=== PATIENT | male | born 1975 | race Caucasian/White ===

== ENCOUNTER 2019-09-11 16:25 | Inpatient (IN) | payer OTHER ==
[~2019-09-11] VITALS: Ht 175.3 cm; Wt 90.7 kg
[2019-09-11 16:31] VITALS: BP 144/80
--- NOTE | 2019-09-11 16:36 | NUR ---
WAIT AT LOBBY
--- NOTE | 2019-09-11 17:19 | NUR ---
PT AMBULATED TO ER BED 01
[2019-09-11] MEDS ORDERED: NACL 0.9% 1,000 ML IV SCH (17:26)
[2019-09-11] MEDS ORDERED: NACL 0.9% 1,000 ML IV ONE (17:26)
[2019-09-11] MEDS ORDERED: PROMETHAZINE 25 MG/ML VIAL IM ONE (17:30)
[2019-09-11] MEDS ORDERED: KETOROLAC 30 MG/ML VIAL IVP ONE (17:30)
[2019-09-11] MEDS ORDERED: ONDANSETRON 4 MG/2 ML VIAL IVP ONE (17:30)
[2019-09-11] MEDS ORDERED: MORPHINE SULFATE 4 MG/ML SYR IVP ONE (17:30)
[2019-09-11] MEDS ORDERED: FAMOTIDINE 20 MG/2 ML VIAL IVP ONE (17:30)
--- NOTE | 2019-09-11 17:57 | NUR ---
PT WAS MEDICATED PER MD ORDER.
[2019-09-11 17:58] LABS: BASOPHILS % (AUTO) 0.4 % (0.0-2.0); EOSINOPHILS % (AUTO) 0.4 % (0.0-4.0); HEMATOCRIT 49.1 % (36-52); HEMOGLOBIN 16.6 g/dL (12.0-18.0); LYMPHOCYTES # (AUTO) 1.2 K/uL (2.0-11.5); LYMPHOCYTES % (AUTO) 20.7 % (20.5-51.1); MEAN CORPUSCULAR HEMOGLOBIN 31 pg (27-31); MEAN CORPUSCULAR HGB CONC 34 g/dL (33-37); MEAN CORPUSCULAR VOLUME 91.2 fL (80-94); MONOCYTES # (AUTO) 0.6 K/uL (0.8-1.0); MONOCYTES % (AUTO) 9.3 % (1.7-9.3); NEUTROPHILS # (AUTO) 4.2 K/uL (1.8-7.7); NEUTROPHILS % (AUTO) 69.2 % (42.2-75.2); PLATELET COUNT (AUTO) 189 K/uL (140-450); RED BLOOD CELL COUNT(AUTO) 5.39 MIL/uL (4.20-6.10); RED CELL DISTRIBUTION WIDTH 13.4 % (11.6-13.7)
[2019-09-11 18:15] LABS: APPEARANCE,URINE CLEAR (CLEAR); BILIRUBIN,URINE NEGATIVE (NEGATIVE); BLOOD, URINE NEGATIVE (NEGATIVE); COLOR,URINE YELLOW (YELLOW); LEUKOCYTE ESTERASE ,URINE NEGATIVE (NEGATIVE); NITRITE, URINE NEGATIVE (NEGATIVE); PH,URINE 7.5 (5.0-9.0); UGLUCOSE 3+ (NEGATIVE)
[2019-09-11 18:24] LABS: PROTHROMBIN TIME 10.3 secs (10.8-13.4)
[2019-09-11 18:25] LABS: BARBITURATE, URINE NEG. ng/ml (NEG <=200); BENZODIAZEPINE, URINE NEG. ng/mL (NEG <=200); CANNABINOID, URINE NEG. ng/mL (NEG <=50); COCAINE, URINE NEG. ng/mL (NEG <=300); OPIATE, URINE NEG. ng/mL (NEG <=2000); PHENCYCLIDINE SCREEN,URINE NEG. ng/mL (NEG <=25)
[2019-09-11 18:28] LABS: CARBON DIOXIDE 27.5 mmol/L (21-32); CHLORIDE 101 mmol/L (98-107); CREATININE 0.8 mg/dL (0.7-1.3); GFR ARICAN-AMERICAN 134 mL/min (>90); GLUCOSE 197 mg/dL (74-106); POTASSIUM 4.5 mmol/L (3.5-5.1); SODIUM SERUM 135 mmol/L (136-145); UREA NITROGEN, BLOOD 7 mg/dL (7-18)
[2019-09-11 18:37] LABS: ALBUMIN 4.3 g/dL (3.4-5.0); AMYLASE 56 U/L (25-115); ASPARTATE AMINOTRANSFERASE 34 U/L (15-37); GAMMA GLUTAMYL TRANSFERASE 29 U/L (7-51); LIPASE 218 U/L (73-393); TOTAL BILIRUBIN 0.6 mg/dL (0.0-1.0)
--- NOTE | 2019-09-11 19:46 | NUR ---
PATIENT ALERT AND ORIENTED, BREATHING EVEN AND UNLABORED, WILL CONTINUE TO MONITOR.
--- NOTE | 2019-09-11 20:04 | NUR ---
Dr. Avalos examining patient.
[2019-09-11] MEDS ORDERED: ONDANSETRON 4 MG/2 ML VIAL IVP PRN (21:25)
[2019-09-11] MEDS ORDERED: ACETAMINOPHEN 325 MG TAB PO PRN (21:25)
[2019-09-11 21:55] VITALS: BP 107/67
--- NOTE | 2019-09-11 21:55 | NUR ---
RECEIVED PT FROM ED VIA [facility]; PT AA O X 4, AMBULATORY STEADY IN HIS GAIT. PT WALKED TO BATHROOM. WITH IVF ON THE LEFT AC G 20, PATENT AND INTACT. PER PREVIOUS SHIFT PT IS BRADYCARDIA LAST READING AT THE ED 58 BPM' PT ALSO HAD ABD PAIN AT THE ED, BUT AT THIS NELL, PT NOT COMPLAINING OF PAIN. CALL LIGHT W/IN REACH, PLACED ON LOW BED. WILL CONTINUE TO MONITOR
--- NOTE | 2019-09-11 22:00 | NUR ---
Patient will be admitted to care of DR LEVINE. Admited to TELE. Will go to room 111B. Belongings list completed. Report to LISET KAHN.
[2019-09-12] VITALS (7 sets, daily range): BP systolic 99–139; BP diastolic 67–90
--- NOTE | 2019-09-12 00:04 | NUR ---
PT AGAIN WENT TO BATHROOM STEADY GAIT, PT TRYING TO GET SOME SLEEP AFTERWARDS
[2019-09-12] MEDS ORDERED: DEXTROSE 50% 50 ML SYR IVP PRN (00:05)
[2019-09-12] MEDS ORDERED: INSULIN LISPRO SLIDING SCALE 100 UNITS/ML VIAL SUBQ PRN (00:05)
--- NOTE | 2019-09-12 01:59 | NUR ---
CALLED PHARMACIST TO VERIFY ON MEDS, HAS NOT VERIFIED THEM SINCE ADMISSION AT THE UNIT
--- NOTE | 2019-09-12 02:54 | NUR ---
PT SLEEPING, NOT IN DISTRESS; ASKED HIM EARLIER TO CALL ME FOR OTHOSTATIC VITALS ONCE HE GETS UP ON BED.
--- NOTE | 2019-09-12 03:00 | NUR ---
TALKED TO JUANITA OF [facility], TOLD HER I TALKED TO WILBUR EARLIER AND SHE SAID THAT SHE WILL VERIFY. SHE DID NOT SAY ANY REASON THAT THE MEDS UNVERIFIED. JUANITA SAID THE REASON IS THAT NO ALLERGY WAS ENCODED. THE PHARMACY DID NOT EVEN CALL. I CALLED THEM 2X. 2ND TIME NOW
[2019-09-12] MEDS: NACL 0.9% 1,000 ML IV SCH ×2 (03:32→11:40)
--- NOTE | 2019-09-12 04:00 | NUR ---
TOOK THE ORTHOSTATIC VITALS; STANDIN/79; 74; SITTIN/86; 56; SUPINE: 107/67; 50; 97%; 0/10 PAIN 98.0 TEMP
--- NOTE | 2019-09-12 06:39 | NUR ---
PT IN STABLE CONDITION, WILL ENDORSE TO NEXT SHIFT
--- NOTE | 2019-09-12 07:15 | NUR ---
RECEIVED REPORT FROM ENDODONTIST NURSE AT BEDSIDE FOR CONTINUITY OF CARE. PATIENT AWAKE AND ALERT, RESPIRATIONS EVEN AND UNLABORED ON ROOM AIR. PATIENT DENIES PAIN. NO S/S OF DISTRESS NOTED. UPDATED BOARD. IV SITE INTACT, INFUSING IVF WELL. UPDATED PATIENT WITH PLAN OF CARE. HE VERBALIZED UNDERSTANDING. CALL LIGHT WITHIN REACH, WILL CONTINUE TO MONITOR PATIENT.
[2019-09-12] MEDS: BLOOD GLUCOSE MONITORING 1 DEV DEV FS SCH ×4 (07:38→21:13)
[2019-09-12] MEDS: metFORMIN 500 MG TAB PO SCH ×2 (08:00→17:00)
[2019-09-12] MEDS: DOCUSATE SODIUM 100 MG GELCAP PO SCH ×2 (08:25→21:12)
[2019-09-12] MEDS: PANTOPRAZOLE 40 MG INJ VIAL IVP SCH ×2 (08:27→21:12)
--- NOTE | 2019-09-12 08:27 | NUR ---
ORDERED MEDICATIONS GIVEN. PATIENT TOLERATED THEM WELL. NO COMPLAINTS AT THIS TIME. CALL LIGHT WITHIN REACH, WILL CONTINUE TO MONITOR PATIENT.
--- NOTE | 2019-09-12 08:37 | NUR ---
DC PLANN[age] YRS OLD MALE PATIENT WAS ADMITTED FROM HOME WITH A DX BRADYCARDIA. HR WAS IN 50 EKG SHOWED SINUS BLADIMIR 51 . PT WAS TREADTED IVF FOR HYDRATION WITH NS MORPHINE IV AND ZOFRAN IV . REPEAT EKG CARDIAC CONSULT ORDERED. DC PLAN TO GO HOME WHEN STABLE .CM TO FOLLOW
[2019-09-12 08:40] LABS: CHOL/HDL RATIO 4.7 (1-4.5); MAGNESIUM 1.9 mg/dL (1.8-2.4); PHOSPHORUS 2.7 mg/dL (2.5-4.9)
[2019-09-12 08:42] LABS: ANION GAP 10.7 (8-16); CARBON DIOXIDE 27.6 mmol/L (21-32); CREATININE 0.9 mg/dL (0.7-1.3); POTASSIUM 4.3 mmol/L (3.5-5.1)
--- NOTE | 2019-09-12 09:05 | NUR ---
PATIENT HAS BEEN SCREENED AND CATEGORIZED MODERATE NUTRITION RISK. PATIENT WILL BE SEEN WITHIN 3-5 DAYS OF ADMISSION. 09/14/18 09/16/[address]
[2019-09-12 09:44] LABS: BASOPHILS % (AUTO) 0.4 % (0.0-2.0); EOSINOPHILS # (AUTO) 0.1 K/uL (0-0.4); EOSINOPHILS % (AUTO) 1.2 % (0.0-4.0); HEMATOCRIT 48.2 % (36-52); HEMOGLOBIN 16.1 g/dL (12.0-18.0); LYMPHOCYTES # (AUTO) 1.9 K/uL (2.0-11.5); LYMPHOCYTES % (AUTO) 26.1 % (20.5-51.1); MEAN CORPUSCULAR HEMOGLOBIN 31 pg (27-31); MEAN CORPUSCULAR HGB CONC 33 g/dL (33-37); MEAN CORPUSCULAR VOLUME 92.9 fL (80-94); MONOCYTES # (AUTO) 0.8 K/uL (0.8-1.0); MONOCYTES % (AUTO) 10.7 % (1.7-9.3); NEUTROPHILS # (AUTO) 4.5 K/uL (1.8-7.7); NEUTROPHILS % (AUTO) 61.6 % (42.2-75.2); PLATELET COUNT (AUTO) 176 K/uL (140-450); RED BLOOD CELL COUNT(AUTO) 5.18 MIL/uL (4.20-6.10); RED CELL DISTRIBUTION WIDTH 13.4 % (11.6-13.7); WHITE BLOOD COUNT (AUTO) 7.3 K/uL (4.8-10.8)
--- NOTE | 2019-09-12 11:32 | NUR ---
Court Administrator Note: Basic Screen: Yes High Risk DC Screen [place]: ROSIE Eller Relationship: Pre-Admission Living Arrangements: Lives with Other Prior ADL Independent Current Home Health Name/Tel: N/A Current DME/02 Name/Tel: N/A Current Hospice Name/Tel: N/A Current Dialysis Name/Tel: N/A Healthcare Decision Maker: Patient Advance Directive No - REFUSED Physician Orders for Life Sustaining Treatment Form No Information Taught: Advance Directive Person Taught: Patient Teaching Tools: Verbal Factors Affecting Learning: None Participation Level: Refused Evaluation: Verbalizes Understanding Needs Additional Education: No Discipline: Case Mgt/Social Svcs Tentative Discharge Plan/Destination: No Needs Identified Will require assistance post discharge: No Referred to Hand Washer: No Tentative Discharge Plan Summary: Patient is a 43-year-old male admitted for bradycardia. Patient has PMHX of pre-DM. Patient was admitted from home. SW met with patient at bedside to verify demographics. Patient reported history of anxiety, but patient stated that he does not take medication for it. Patient reports no history of substance abuse. Pateint's tentative discharge plan is to return home. No further needs identified. Signature: TERRY Sorto Date: Sep 12, 2019 Time: 11:31
--- NOTE | 2019-09-12 12:03 | NUR ---
BS 1103, NO COVERAGE NEEDED. NO COMPLAINTS AT THIS TIME. CALL LIGHT WITHIN REACH, WILL CONTINUE TO MONITOR PATIENT.
--- NOTE | 2019-09-12 17:05 | NUR ---
PATIENT REFUSED ORDERED METFORMIN, PATIENT IS AWARE OF INDICATIONS. BS 110, NO COVERAGE NEEDED. NO COMPLAINTS AT THIS TIME. CALL LIGHT WITHIN REACH, WILL CONTINUE TO MONITOR PATIENT.
--- NOTE | 2019-09-12 19:18 | NUR ---
REPORT GIVEN TO TACK DRILLER NURSE AT BEDSIDE FOR CONTINUITY OF CARE. PATIENT IN STABLE CONDITION, FAMILY AT BEDSIDE.
--- NOTE | 2019-09-12 19:20 | NUR ---
RECEIVED FROM AM RN IN BED IN A SITTING UP POSITION READING A MAGAZINE. NO COMPLAINTS DONE. NO SOB. TELEMETRY MONITORING. CALL LIGHT WITH IN REACH. ENCOURAGED TO CALL FOR ANY HELP HE MAY NEED. ABLE TO VERBALIZE NEEDS WELL IN [place]. ALERT AND ORIENTED X 4. ROM X 4.
[2019-09-12 20:51] LABS: FREE T4 (FREE THYROXINE) 0.88 ng/dL (0.76-1.46); PHOSPHORUS 2.3 mg/dL (2.5-4.9); THYROID STIMULATING HORMONE 0.93 uIU/mL (0.34-3.74)
--- NOTE | 2019-09-12 22:28 | NUR ---
STILL AWAKE AT THIS TIME. HEALTH TEACHING GIVEN RE: DIABETES AND BRADYCARDIA. ENCOURAGED TO SLEEP TO REST FOR THE NIGHT. "OK" NO COMPLAINTS DONE.
--- NOTE | 2019-09-13 | NUR ---
SLEEPING. WOKE UP EASILY WHEN VITALS TAKEN. WENT BACK TO SLEEP AFTER. NO PAIN COMPLAINTS DONE AT THIS TIME. NO RESTLESSNESS. TELEMETRY MONITORING.
[2019-09-13 00:02] VITALS: BP_SYST 120; BP_SYST 127; BP_DIAS 70; BP_DIAS 73
[2019-09-13 04:00] VITALS: BP_SYST 106; BP_SYST 117; BP_SYST 121; BP_DIAS 73; BP_DIAS 74; BP_DIAS 78
[2019-09-13] MEDS: BLOOD GLUCOSE MONITORING 1 DEV DEV FS SCH (05:12)
[2019-09-13] MEDS: NACL 0.9% 1,000 ML IV SCH (05:19)
--- NOTE | 2019-09-13 05:55 | NUR ---
BEEN SLEEPING WELL THIS SHIFT. NO COMPLAINTS OF ANY PAIN DONE. TELEMETRY MONITORING. TELEMETRY MONITORING. CALL LIGHT WITH IN REACH. ABLE TO VERBALIZE NEEDS WELL. VITAL SIGNS TAKEN AND WAKES UP EASILY WHEN CALLED BY NAME. WILL ENDORSE TO AM RN FOR CONTINUITY OF CARE. 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
[2019-09-13 07:13] LABS: ANION GAP 14.8 (8-16); CARBON DIOXIDE 28.6 mmol/L (21-32); CREATININE 0.9 mg/dL (0.7-1.3); POTASSIUM 3.4 mmol/L (3.5-5.1)
[2019-09-13 07:17] LABS: BASOPHILS % (AUTO) 0.4 % (0.0-2.0); EOSINOPHILS # (AUTO) 0.1 K/uL (0-0.4); EOSINOPHILS % (AUTO) 2.6 % (0.0-4.0); HEMATOCRIT 50.9 % (36-52); HEMOGLOBIN 17.1 g/dL (12.0-18.0); LYMPHOCYTES # (AUTO) 2.1 K/uL (2.0-11.5); LYMPHOCYTES % (AUTO) 36.8 % (20.5-51.1); MEAN CORPUSCULAR HEMOGLOBIN 31 pg (27-31); MEAN CORPUSCULAR HGB CONC 34 g/dL (33-37); MEAN CORPUSCULAR VOLUME 92.8 fL (80-94); MONOCYTES # (AUTO) 0.6 K/uL (0.8-1.0); NEUTROPHILS # (AUTO) 2.8 K/uL (1.8-7.7); NEUTROPHILS % (AUTO) 50.2 % (42.2-75.2); PLATELET COUNT (AUTO) 186 K/uL (140-450); RED BLOOD CELL COUNT(AUTO) 5.48 MIL/uL (4.20-6.10); RED CELL DISTRIBUTION WIDTH 13.4 % (11.6-13.7); WHITE BLOOD COUNT (AUTO) 5.6 K/uL (4.8-10.8)
[2019-09-13 07:25] LABS: MAGNESIUM 1.9 mg/dL (1.8-2.4); PHOSPHORUS 3.2 mg/dL (2.5-4.9)
--- NOTE | 2019-09-13 07:27 | NUR ---
RECEIVED HAND OFF REPORT AT BEDSIDE FROM PM RN. PT APPEARS STABLE AND IN NO APPARENT DISTRESS. ALL SAFETY MEASURES ARE IN PLACE WILL CONTINUE TO MONITOR.
[2019-09-13] MEDS: metFORMIN 500 MG TAB PO SCH (08:00)
[2019-09-13 08:05] VITALS: BP 125/84
[2019-09-13] MEDS: DOCUSATE SODIUM 100 MG GELCAP PO SCH (08:35)
[2019-09-13] MEDS: PANTOPRAZOLE 40 MG INJ VIAL IVP SCH (08:35)
--- NOTE | 2019-09-13 09:01 | NUR ---
FREQUENT ROUNDING ON PT PT APPEARS STABLE AND IN NO APPARENT DISTRESS. ALL SAFETY MEASURES ARE IN PLACE PT FAMILY MEMBER AT BEDSIDE. UPDATED PT ON CHANGE OF PLAN OF CARE. INFORMED PT WE ARE PREPARING PT TO DISCHARGE.
[2019-09-13] MEDS ORDERED: PANT40EC PO (09:11)
[2019-09-13] MEDS ORDERED: METF500T PO (09:11)
[2019-09-13] MEDS ORDERED: POTASSIUM CHLORIDE 10 MEQ TABER PO SCH (09:18)
--- NOTE | 2019-09-13 10:55 | NUR ---
REVIEWED DISCHARGE INSTRUCTIONS WITH PT. INFORMED PATIENT TO FOLLOW UP WITH PRIMARY CARE PROVIDER WITHIN 5 TO 7 BUSINESS DAYS OF TODAYS DISCHARGE. INFORMED PT HIS PRESCRIBED MEDICATIONS HAVE BEEN ELECTRONICALLY SENT TO [facility] ON . ANSWERED ALL PATIENTS QUESTIONS. REMOVED IV IV TIP INTACT. REMOVED ID BAND. PT AMBULATED OFF THE UNIT WITH ALL PERSONAL BELONGINGS PT HAD A STEADY GAIT. PT AMBULATED OFF THE UNIT WITH FAMILY MEMBER.
== END 2019-09-13 10:55 | disposition home or self-care (01) | DRG 254 ==
LOC: MED 16:25 → MTU 21:22
PROVIDERS: ADMIT General Practice; ATTEND General Practice
DX: K31.84 Gastroparesis (principal); E87.1 Hypo-osmolality and hyponatremia; K21.9 Gastro-esophageal reflux disease without esophagitis; R00.1 Bradycardia, unspecified; F12.10 Cannabis abuse, uncomplicated; F41.9 Anxiety disorder, unspecified; R73.03 Prediabetes; F15.10 Other stimulant abuse, uncomplicated; E87.6 Hypokalemia
CPT/HCPCS: 36415; 71045; 76705; 80048; 80053; 80305; 81003; 82150; 82948; 82977; 83036; 83690; 83735; 83880; 84100; 84439; 84443; 84484; 85025; 85610; 85730; 87081; 93005; 96361; 96374; 96375; 99285; C9113; G0482; J1885; J2270; J2405; J2550; J3490; J7030; Q0092

== ENCOUNTER 2021-04-18 10:01 | Emergency (ER) | payer OTHER ==
[~2021-04-18] VITALS: Ht 177.8 cm; Wt 79.4 kg
[~2021-04-18 10:01] MED LIST: METF500T PO; PANT40EC PO
[2021-04-18 10:26] VITALS: BP 117/73
--- NOTE | 2021-04-18 10:40 | NUR ---
COVID SWAB DONE.
[2021-04-18 14:11] LABS: BASOPHILS # (AUTO) 0.1 K/uL (0.00-0.22); BASOPHILS % (AUTO) 1.7 % (0.0-2.0); EOSINOPHILS # (AUTO) 0.1 K/uL (0-0.4); EOSINOPHILS % (AUTO) 1.5 % (0.0-4.0); HEMATOCRIT 44.7 % (36-52); HEMOGLOBIN 15.1 g/dL (12.0-18.0); LYMPHOCYTES # (AUTO) 1.6 K/uL (2.0-11.5); MEAN CORPUSCULAR HEMOGLOBIN 31 pg (27-31); MEAN CORPUSCULAR HGB CONC 34 g/dL (33-37); MEAN CORPUSCULAR VOLUME 91.3 fL (80-94); MONOCYTES # (AUTO) 0.5 K/uL (0.8-1.0); MONOCYTES % (AUTO) 9.1 % (1.7-9.3); NEUTROPHILS % (AUTO) 57.7 % (42.2-75.2); PLATELET COUNT (AUTO) 357 K/uL (140-450); RED BLOOD CELL COUNT(AUTO) 4.89 MIL/uL (4.20-6.10); RED CELL DISTRIBUTION WIDTH 13.4 % (11.6-13.7); WHITE BLOOD COUNT (AUTO) 5.2 K/uL (4.8-10.8)
[2021-04-18 14:30] LABS: ALBUMIN 3.5 g/dL (3.4-5.0); ANION GAP 6.9 (8-16); CARBON DIOXIDE 31.5 mmol/L (21-32); CREATININE 1.1 mg/dL (0.6-1.3); POTASSIUM 4.4 mmol/L (3.5-5.1); TOTAL BILIRUBIN 0.4 mg/dL (0.0-1.0)
[2021-04-18] MEDS ORDERED: DOXY-487 PO (15:08)
[2021-04-18] MEDS ORDERED: PROM473S5 PO (15:08)
[2021-04-18] MEDS ORDERED: PRED20TA5 PO (15:08)
[2021-04-18 15:26] VITALS: BP 122/73
--- NOTE | 2021-04-18 15:26 | NUR ---
Patient discharged with v/s stable from [facility]. Written and verbal after care instructions given and explained. Patient alert, oriented and verbalized understanding of instructions. Ambulatory with steady gait. All questions addressed prior to discharge. ID band removed. Patient advised to follow up with PMD. Rx of Prednisone, Doxycycline and Promethazine given. Patient educated on indication of medication including possible reaction and side effects. Opportunity to ask questions provided and answered.
== END 2021-04-18 15:26 | disposition home or self-care (01) ==
LOC: MED 10:01
DX: J18.9 Pneumonia, unspecified organism (principal); E11.9 Type 2 diabetes mellitus without complications; Z20.822 Contact with and (suspected) exposure to COVID-19
CPT/HCPCS: 36415; 71045; 80053; 84484; 85025; 93005; 99285

== ENCOUNTER 2022-06-02 13:27 | Emergency (ER) | payer OTHER ==
[~2022-06-02] VITALS: BP 126/70; Ht 175.3 cm; Wt 89.4 kg
[2022-06-02 13:27] VITALS: BP 140/90
[~2022-06-02 13:27] MED LIST changes: +DOXY-487 PO; +METF-346 PO; -METF500T PO; +PRED20TA5 PO; +PROM473S5 PO
--- NOTE | 2022-06-02 13:27 | NUR ---
Doris mckeon in [facility] - 06/02/22 at 1340 by [facility] Pt biba BLS and placed in bed 8.
--- NOTE | 2022-06-02 13:30 | NUR ---
Note undone in EDM - 06/02/22 at 1340 by [facility] 46/M [facility] BLS crew for c/o left foot pain. Pt states he woke up last night sleep walking and stepped out of his tent and stepped onto a sharp object. Patient c/o pain and unable to bare weight on left side. No active bleeding at this time. Patient AOX4. Pt is non compliant on medications. Hx CVA with left sided deficit, DM, a. fib. VSS at this time.
[2022-06-02 14:14] VITALS: BP 126/70
[2022-06-02] MEDS ORDERED: LID5T TP (16:23)
[2022-06-02] MEDS ORDERED: CYCL-711 PO (16:23)
[2022-06-02] MEDS ORDERED: IBUP-2213 PO (16:23)
--- NOTE | 2022-06-02 18:49 | NUR ---
46 y/o male, c/o low back pain 5 days. denies dysuria, hematuria, abd pain. denies any recent injury/fall. a&ox4, ambulates with steady gait. pmh: prediabetic nka med: naproxen
[2022-06-02] MEDS: KETOROLAC 30 MG/ML VIAL IM ONE (18:50)
--- NOTE | 2022-06-02 18:50 | NUR ---
pt called x3 , no answer
--- NOTE | 2022-06-02 18:50 | NUR ---
PT LEFT W/O PAPER WORK OR MEDICATION
--- NOTE | 2022-06-02 18:51 | NUR ---
The patient's care was reviewed and supervised by Marge Desir RN.
== END 2022-06-02 18:50 | disposition home or self-care (01) ==
LOC: MED 14:22
DX: S39.012A Strain of muscle, fascia and tendon of lower back, initial encounter (principal); R03.0 Elevated blood-pressure reading, without diagnosis of hypertension; Z79.899 Other long term (current) drug therapy; X58.XXXA Exposure to other specified factors, initial encounter; Y93.89 Activity, other specified; Y92.89 Other specified places as the place of occurrence of the external cause; Y99.8 Other external cause status
CPT/HCPCS: 81002; 99283

== ENCOUNTER 2022-08-09 16:47 | Emergency (ER) | payer OTHER ==
[~2022-08-09] VITALS: Ht 177.8 cm; Wt 87.5 kg
[~2022-08-09 16:47] MED LIST changes: +CYCL-711 PO; +IBUP-2213 PO; +LID5T TP
[2022-08-09 17:07] VITALS: BP 144/85
[2022-08-09] MEDS ORDERED: FAMO-90 PO (20:43)
[2022-08-09 21:33] VITALS: BP 144/85
--- NOTE | 2022-08-09 21:33 | NUR ---
CALLED FOR DC NO ANSWER. LEFT WITHOUT PAPERWORK. ERMD PRESCRIBED FAMOTIDINE.
== END 2022-08-09 21:33 | disposition home or self-care (01) ==
LOC: MED 16:47
DX: R07.9 Chest pain, unspecified (principal); K21.9 Gastro-esophageal reflux disease without esophagitis; Z72.89 Other problems related to lifestyle
CPT/HCPCS: 93005; 99283

== ENCOUNTER 2023-03-28 11:39 | Emergency (ER) | payer OTHER ==
[~2023-03-28] VITALS: Ht 177.8 cm; Wt 86.2 kg
[~2023-03-28 11:39] MED LIST changes: +FAMO-90 PO
[2023-03-28 11:57] VITALS: BP 111/75; PULSE 93; RESP 12; TEMP 98; O2SAT 98
[2023-03-28] MEDS ORDERED: IBUPROFEN 600 MG TAB PO ONE (12:25)
[2023-03-28] MEDS ORDERED: CEPH-588 PO (13:17)
[2023-03-28] MEDS ORDERED: IBUP-1842 PO (13:17)
--- NOTE | 2023-03-28 14:18 | NUR ---
Patient discharged with v/s stable. Written and verbal after care instructions given and explained. Patient verbalized understanding. Ambulatory with steady gait. All questions addressed prior to discharge. Advised to follow up with PMD.
== END 2023-03-28 14:18 | disposition home or self-care (01) ==
LOC: MED 11:39
DX: L03.032 Cellulitis of left toe (principal); Z79.899 Other long term (current) drug therapy; Z98.890 Other specified postprocedural states
CPT/HCPCS: 73660; 99283

== ENCOUNTER 2023-07-01 14:37 | Emergency (ER) | payer OTHER ==
[~2023-07-01] VITALS: Ht 177.8 cm; Wt 85.8 kg
[~2023-07-01 14:37] MED LIST changes: +CEPH-588 PO; +IBUP-1842 PO
[2023-07-01 14:54] VITALS: BP 140/73; PULSE 68; RESP 20; TEMP 98.2; O2SAT 97
[2023-07-01 16:37] VITALS: BP 140/73; PULSE 68; RESP 20; TEMP 98.2; O2SAT 97
== END 2023-07-01 16:37 | disposition home or self-care (01) ==
LOC: MED 14:37
DX: M75.121 Complete rotator cuff tear or rupture of right shoulder, not specified as traumatic (principal); E11.9 Type 2 diabetes mellitus without complications; K21.9 Gastro-esophageal reflux disease without esophagitis; Z79.4 Long term (current) use of insulin; Z79.899 Other long term (current) drug therapy
CPT/HCPCS: 73030; 99283

== ENCOUNTER 2023-10-25 23:18 | Emergency (ER) | payer OTHER ==
[~2023-10-25] VITALS: Ht 177.8 cm; Wt 83.9 kg
[2023-10-25 23:21] VITALS: BP 151/80; PULSE 98; RESP 16; TEMP 98.6; O2SAT 98
[2023-10-25 23:49] VITALS: O2SAT 98
[2023-10-26 00:53] LABS: BASOPHILS % (AUTO) 0.4 % (0.0-2.0); EOSINOPHILS # (AUTO) 0.1 K/uL (0-0.4); EOSINOPHILS % (AUTO) 1.2 % (0.0-4.0); HEMATOCRIT 42.7 % (36-52); HEMOGLOBIN 14.6 g/dL (12.0-18.0); LYMPHOCYTES # (AUTO) 1.4 K/uL (2.0-11.5); MEAN CORPUSCULAR HEMOGLOBIN 31 pg (27-31); MEAN CORPUSCULAR HGB CONC 34 g/dL (33-37); MEAN CORPUSCULAR VOLUME 91.2 fL (80-94); MONOCYTES # (AUTO) 0.6 K/uL (0.8-1.0); NEUTROPHILS # (AUTO) 3.6 K/uL (1.8-7.7); NEUTROPHILS % (AUTO) 63.4 % (42.2-75.2); PLATELET COUNT (AUTO) 184 K/uL (140-450); RED BLOOD CELL COUNT(AUTO) 4.68 MIL/uL (4.20-6.10); RED CELL DISTRIBUTION WIDTH 13.5 % (11.6-13.7); WHITE BLOOD COUNT (AUTO) 5.7 K/uL (4.8-10.8)
[2023-10-26 01:05] LABS: ANION GAP 10.9 (8-16); CALCIUM 9.3 mg/dL (8.5-10.1); CARBON DIOXIDE 30.9 mmol/L (21-32); POTASSIUM 3.8 mmol/L (3.5-5.1)
[2023-10-26 01:29] LABS: ALKALINE PHOSPHATASE 72 U/L (50-136); BILIRUBIN,DIRECT 0.1 mg/dL (0.0-0.3); TOTAL BILIRUBIN 0.3 mg/dL (0.0-1.0); TOTAL PROTEIN, SERUM 8.6 g/dL (6.4-8.2)
[2023-10-26 01:30] LABS: ALANINE AMINOTRANSFERASE 2 U/L (12-78); ALBUMIN 0.1 g/dL (3.4-5.0); ASPARTATE AMINOTRANSFERASE 7 U/L (15-37)
[2023-10-26 03:30] VITALS: O2SAT 100
[2023-10-26 04:23] VITALS: BP 101/58; PULSE 72; RESP 17; O2SAT 98
== END 2023-10-26 04:35 | disposition home or self-care (01) ==
LOC: MED 23:18
DX: R07.89 Other chest pain (principal); F41.9 Anxiety disorder, unspecified; R03.0 Elevated blood-pressure reading, without diagnosis of hypertension; E11.9 Type 2 diabetes mellitus without complications; K21.9 Gastro-esophageal reflux disease without esophagitis; Z79.899 Other long term (current) drug therapy; Z79.1 Long term (current) use of non-steroidal anti-inflammatories (NSAID)
CPT/HCPCS: 36415; 71045; 80048; 80076; 83880; 84484; 85025; 85379; 93005; 99285; Q0092